=== PATIENT | male | born 1985 | race Caucasian/White ===

== ENCOUNTER 2020-07-11 06:45 | Emergency (ER) | payer BC, SELFPAY ==
[2020-07-11 06:47] VITALS: BP 137/80; PULSE 78; RESP 20; TEMP 36.1; O2SAT 98
--- NOTE | 2020-07-11 07:29 | ED.EYEPROB ---
HPI - Eye Problem General Chief complaint: Eye Problems Stated complaint: l eye swelling Time Seen by Provider: 07/11/20 07:08 Source: patient Mode of arrival: ambulatory Limitations: no limitations History of Present Illness HPI Narrative: This patient is a 35 year old male who presents for evaluation of left eye irritation. He states he thinks he scratched his left eye. He woke with mild irritation to his left eye and as the morning progressed he developed more light sensitivity. He describes burning pain to his left eye and his eye is constantly watering. HE has mild blurred vision. He denies wearing contact lenses but he does wear glasses. chief complaint: eye redness Duration: constant Location: left eye Place: home Related Data Allergies Allergy/AdvReac Type Severity Reaction Status Date / Time No Known Allergies Allergy Unverified 05/23/15 18:12 Review of Systems Review of Systems: All systems reviewed & are unremarkable except as noted in HPI and below Constitutional: Constitutional: Denies chills and Denies fever(s) Eyes: Eyes: Reports eye discharge, Reports irritation and Reports photophobia [facility] Past Medical History Medical History (Updated 07/11/20 @ 07:36 by Juanita Caldera MD) Patient denies medical problems Social History Social History (Updated 07/11/20 @ 07:30 by Juanita Caldera MD) Smoking status: Never smoker Gender identity (if verbalized by the patient): Male Exam Const: General: alert Orientation/consciousness: patient oriented x3 HENMT: Head: normocephalic and atraumatic Face and sinus: face symmetric Mouth: Yes lip normal Eyes: Eyelids: other (mild left eye lid swelling) Conjunctivae: conjunctival abnormality left conjunctival injection and discharge (watery) Cornea: corneas abnormal on the left abrasion and fluorescein used (uptake is triangular shape at 4 oclock position) Pupils: Equal, round and reactive pupils present EOM: EOMs intact bilaterally Direct Ophthalmoscopy: photophobia Other: Visual acuity- right eye 20/20 left eye- 20/50 bilateral eye- 20/20 Resp: Effort & Inspection: normal respiratory effort Skin: General skin exam: normal color Rashes: no rashes Neuro: General: patient oriented x3, moves all extremities and CN's II-XI intact bilaterally Psych: Mental Status: mental status grossly normal Affect: normal affect Course Reevaluation(s) Reevaluation #1: I discussed with patient that he has cornea abrasion and it is recommended that he follow up with eye doctor. Date: 07/11/20 Time: 07:34 Vital Signs Vital signs: Vital Signs Temperature 97.0 F L 07/11/20 06:47 Pulse Rate 78 07/11/20 06:47 Respiratory Rate 20 07/11/20 06:47 Blood Pressure 137/80 07/11/20 06:47 Pulse Oximetry 98 07/11/20 06:47 Temperature 97.0 F L 07/11/20 06:47 Pulse Rate 78 07/11/20 06:47 Respiratory Rate 20 07/11/20 06:47 Blood Pressure 137/80 07/11/20 06:47 Pulse Oximetry 98 07/11/20 06:47 Discharge Plan Discharge Clinical Impression: Abrasion of cornea, left Qualifiers: Encounter type: initial encounter Qualified Code(s): S05.02XA - Injury of conjunctiva and corneal abrasion without foreign body, left eye, initial encounter Patient Disposition: Home, Self-Care Condition: Stable Instructions: Antibiotic Form, Corneal Abrasion (ED), How to Use Eye Drops (ED) Additional Instructions: Today you were found to have a corneal abrasion. Get eye drops immediately filled and start using. I recommend you follow up with an eye doctor within 48 hours to make sure you are improving. Prescriptions: New ciprofloxacin HCl 0.3 % drops See Rx Instructions .ROUTE .COMPLEX Qty: 5 RF: 0 Follow-up/Referrals: MIRNA,KELSI Mercado M.D. [Primary Care Provider] - Discharge Date/Time: 07/11/20 07:50
== END 2020-07-11 07:50 | disposition home or self-care (01) ==
PROVIDERS: Emergency Provider General Practice; PCP Family Medicine Adult Medicine
DX: S05.02XA Injury of conjunctiva and corneal abrasion without foreign body, left eye, initial encounter (principal); W22.8XXA Striking against or struck by other objects, initial encounter
CPT/HCPCS: 99283

== ENCOUNTER 2020-10-03 06:58 | Outpatient (NON) | payer BC, SELFPAY ==
[2020-10-03 23:27] LABS: SARS-CoV-2 RNA PCR Negative
== END 2020-10-03 06:59 ==
DX: Z20.828 Contact with and (suspected) exposure to other viral communicable diseases (principal); R09.89 Other specified symptoms and signs involving the circulatory and respiratory systems
CPT/HCPCS: 87635; C9803; U0003

== ENCOUNTER 2023-07-15 19:14 | Emergency (ER) | payer OTHER, SELFPAY ==
--- NOTE | ~2023-07-15 | XR_ITS ---
EXAMINATION: XR shoulder LT min 2V INDICATION: Left shoulder pain TECHNIQUE: Four views of the left shoulder are submitted. COMPARISON: None FINDINGS: There is anterior and inferior dislocation of the humeral head with respect to the glenoid. The acromioclavicular joint spaces normal. Soft tissues are unremarkable. IMPRESSION: 1. Anterior/inferior dislocation of the humeral head. Reviewed, dictated and finalized at location F.
[2023-07-15 19:27] VITALS: BP 158/87; PULSE 74; RESP 14; TEMP 36.9; O2SAT 100
--- NOTE | 2023-07-15 19:29 | ED.UPPEXIN ---
HPI - Extremity Injury (Upper) General Chief Complaint: Extremity Injury, Upper Stated Complaint: Left Shourlder Injury Source: patient and RN notes reviewed History of Present Illness HPI narrative: 38 yo M presents to urgent care with complaints of left shoulder pain. Pt states [employer], he slipped in the wet grass, causing him to fall. Pt states he landed with his left arm behind him. Denies any head injury or LOC. Denies any neck pain, chest pain, or SOB. Related Data Home Medications Medication Instructions Recorded Confirmed dextroamphetamine-amphetamine 15 15 mg PO DAILY 07/15/23 07/15/23 mg tablet (Adderall) testosterone cypionate 200 mg/mL 200 mg IM WEEKLY 07/15/23 07/15/23 intramuscular kit Allergies Allergy/AdvReac Type Severity Reaction Status Date / Time bee venom protein (honey bee) Allergy Anaphylaxis Verified 07/15/23 19:30 [bees] Review of Systems Review of Systems: CONSTITUTIONAL: Denies fever, chills, or sweats. EYES: Denies visual changes, redness, or discharge. ENT: Denies otalgia and sore throat CARDIOVASCULAR: Denies chest pain, palpitations, or edema. RESPIRATORY: Denies cough or dyspnea. GASTROINTESTINAL: Denies abdominal pain, nausea, vomiting, or diarrhea. GENITOURINARY: Denies dysuria or hematuria. SKIN: Denies rash or itching. MUSCULOSKELETAL: left shoulder pain NEUROLOGIC: Denies headache, numbness, or weakness. Pertinent positives per HPI. [facility] Past Medical History Medical History (Updated 07/12/20 @ 00:00 by Dileep Xiong) Patient denies medical problems Social History Social History (Updated 07/11/20 @ 07:30 by Juanita Caldera MD) Smoking status: Never smoker Gender identity (if verbalized by the patient): Male Comments At the time of my signature, I reviewed and agree with the nursing past medical, surgical, social, and family history. There is no relevant family history pertinent to the patient complaint. Exam Narrative: GENERAL: This is a well-nourished, well-developed patient, in no apparent distress. HEAD: normocephalic, atraumatic. EYES: Sclera clear/white. Vision is grossly intact. EARS: External ears normal, auditory canals clear and without drainage. Hearing grossly intact. NOSE: External nose normal with no obvious nasal discharge, nares without redness, no rhinorrhea. THROAT: Mucous membranes moist, posterior pharynx clear. NECK: Neck supple, non-tender without lymphadenopathy, masses or thyromegaly. CARDIOVASCULAR: Regular rate RESPIRATORY: No respiratory distress SKIN: warm, intact with no suspicious lesions or rash, good texture and turgor. NEURO: awake, alert, and oriented to person, place and time. There were no obvious focal neurologic abnormalities. EXTREMITIES: Swelling and tenderness to left anterior shoulder. BACK: Nontender without deformity or crepitus. No flank tenderness. Course Course Level of Care: Express Care Visit Vital Signs Vital signs: Vital Signs Temperature 98.4 F 07/15/23 19:27 Pulse Rate 74 07/15/23 19:27 Respiratory Rate 14 07/15/23 19:27 Blood Pressure 158/87 H 07/15/23 19:27 Pulse Oximetry 100 07/15/23 19:27 Oxygen Delivery Room Air 07/15/23 19:27 Temperature 98.4 F 07/15/23 19:33 Pulse Rate 74 07/15/23 19:33 Respiratory Rate 14 07/15/23 19:33 Blood Pressure 158/87 H 07/15/23 19:33 Pulse Oximetry 100 07/15/23 19:33 Oxygen Delivery Room Air 07/15/23 19:33 Reviewed MDM - Extremity Injury (Upper) MDM Narrative Medical decision making narrative: Discussed xray with Flakita GRESHAM at [facility] who accepts pt for transfer. Discussed with pt reasoning behind ER transfer. Pt going by private vehicle. VSS. Differential Diagnosis Differential diagnosis: Likely dislocation of shoulder, fracture of humerus and fracture of clavicle Critical Care Time Critical Care Time Critical Care Time: No Discharge Plan Discharge Prescriptions: No Action d
[2023-07-15 19:33] VITALS: BP 158/87; PULSE 74; RESP 14; TEMP 36.9; O2SAT 100
== END 2023-07-15 19:49 | disposition short-term general hospital (02) ==
LOC: EXPBETH 19:18
PROVIDERS: Emergency Provider Nurse Practitioner Family
DX: S43.005A Unspecified dislocation of left shoulder joint, initial encounter (principal); Z79.899 Other long term (current) drug therapy; W01.0XXA Fall on same level from slipping, tripping and stumbling without subsequent striking against object, initial encounter
CPT/HCPCS: 73030; 99212; A4565; G0463

== ENCOUNTER 2023-07-15 20:24 | Emergency (ER) | payer OTHER, SELFPAY ==
[2023-07-15] VITALS (8 sets, daily range): BP systolic 149–186; BP diastolic 81–125; PULSE 60–87; RESP 15–20; TEMP 36.6–36.9; O2SAT 99–100
--- NOTE | ~2023-07-15 | XR_ITS ---
EXAMINATION: XR shoulder LT min 2V INDICATION: Post reduction TECHNIQUE: Two views of the left shoulder are submitted. COMPARISON: 2058 hours FINDINGS: The previously described humeral head dislocation has been reduced. Alignment is anatomic. No fracture is identified. The acromioclavicular joint space is normal. The soft tissues are unremark able. IMPRESSION: 1. Reduced humeral head dislocation. Reviewed, dictated and finalized at location F.
--- NOTE | ~2023-07-15 | XR_ITS ---
EXAMINATION: XR shoulder LT min 2V INDICATION: Left shoulder dislocation TECHNIQUE: Two views of the left shoulder are submitted. COMPARISON: 1933 hours FINDINGS: The left humeral head remains anteriorly and inferiorly dislocated relative to the humeral head. No fracture is identified. The acromioclavicular joint space is normal. The soft tissues are un remarkable. IMPRESSION: 1. Persistent anterior/inferior dislocation of the humeral head. Reviewed, dictated and finalized at location F.
--- NOTE | 2023-07-15 21:19 | ED.GENADULT ---
HPI - General Adult General Chief complaint: Extremity Injury, Upper Stated complaint: dislocated left shoulder Time Seen by Provider: 07/15/23 21:11 History of Present Illness HPI narrative: Patient 38-year-old gentleman who presents the emergency department with chief complaint of left shoulder pain. Patient reports he slipped on the grass and landed on an outstretched hand. The patient reports pain in his left shoulder reports that it is deformed patient went to urgent care and was found to have a anterior shoulder dislocation by urgent care and was sent to the emergency department. Patient states he has little bit of tingling in his arm but otherwise has normal sensation reports he is able to move his hand normally after the injury. Patient reports no prior problems with anesthesia reports his last oral intake was around 4 PM Related Data Home Medications Medication Instructions Recorded Confirmed dextroamphetamine-amphetamine 15 15 mg PO DAILY 07/15/23 07/15/23 mg tablet (Adderall) testosterone cypionate 200 mg/mL 200 mg IM WEEKLY 07/15/23 07/15/23 intramuscular kit Allergies Allergy/AdvReac Type Severity Reaction Status Date / Time bee venom protein (honey bee) Allergy Anaphylaxis Verified 07/15/23 19:30 [bees] Review of Systems Review of Systems: A 10 system review of systems was completed on the patient and is negative except for what is stated in the HPI. Nursing and ancillary documentation was reviewed. [facility] Past Medical History Medical History Patient denies medical problems Social History Social History Smoking status: Never smoker Gender identity (if verbalized by the patient): Male Course Vital Signs Vital signs: Vital Signs Temperature 36.8 C 07/15/23 20:32 Pulse Rate 60 07/15/23 20:32 Respiratory Rate 20 07/15/23 20:32 Blood Pressure 186/97 H 07/15/23 20:32 Pulse Oximetry 100 07/15/23 20:32 Oxygen Delivery Room Air 07/15/23 20:32 Temperature 36.7 C 07/15/23 22:40 Pulse Rate 65 07/15/23 22:40 Respiratory Rate 15 07/15/23 22:40 Blood Pressure 149/96 H 07/15/23 22:40 Pulse Oximetry 100 07/15/23 22:40 Oxygen Delivery Room Air 07/15/23 22:40 Oxygen Flow Rate 2 07/15/23 22:10 Procedures Orthopedic Joint Reduction Joint #1: Orthopedic Joint Reduction Date: 07/15/23 Orthopedic Joint Reduction Time: 22:00 Time Out Performed: Yes Side: left Joint Reduction Location: shoulder Analgesia: procedural sedation Pre-Procedure Neuro Vascular Exam: normal Local Anesthesia: none Shoulder Technique Used (if applicable): external rotation Post-reduction neuro exam: intact Post-reduction vascular: intact Post Reduction X-Ray Obtained: Yes Post Reduction X-Ray Results: reduced Splint Applied: Yes Patient Tolerated Procedure: well Procedural Sedation Procedural Sedation #1: Procedural Sedation Date: 07/15/23 Procedural Sedation Time: 21:21 Presedation Evaluation: GENERAL: Well-appearing, well-nourished, and in no acute distress. HEAD: Normocephalic, atraumatic. EYES: PERRLA and EOMI. ENT: Nares clear, no rhinorrhea or epistaxis. Mucous membranes moist. NECK: Supple. CHEST: Clear to auscultation. No respiratory distress. HEART: Regular rate and rhythm. No murmur heard. Normal peripheral pulses. ABDOMEN: Soft, nontender, nondistended, normal active bowel sounds. EXTREMITIES: Normal range of motion decreased range of motion of the left upper extremity deformity at the left shoulder consistent with anterior shoulder dislocation. No edema. SKIN: Warm, dry, no rash. NEURO: No focal deficits. Alert and oriented x3. PSYCH: Normal mood and affect. Procedure: Closed reduction of left anterior shoulder
[2023-07-15] MEDS: MORPHINE SULFATE (*CRX) 4 MG/ML INJ IV PUSH (21:24)
[2023-07-15] MEDS: SODIUM CHLORIDE 0.9% IV 1,000 ML 999 ML (21:49)
--- NOTE | 2023-07-15 22:00 | PC.NURSE ---
1000 mL bag of NS pulled for moderate sedation L shoulder reduction.
[2023-07-15] MEDS: PROPOFOL IV EMULSION 200 MG/20 ML VIAL 90 MG IV PUSH (22:02)
== END 2023-07-15 23:15 | disposition home or self-care (01) ==
PROVIDERS: Emergency Provider Emergency Medicine
DX: S43.015A Anterior dislocation of left humerus, initial encounter (principal); S43.035A Inferior dislocation of left humerus, initial encounter; W01.0XXA Fall on same level from slipping, tripping and stumbling without subsequent striking against object, initial encounter
CPT/HCPCS: 23650; 73030; 96374; 99285; A4565; J2270; J2704; J7030